=== PATIENT | female | born 1935 | race Hispanic/Latino ===

== ENCOUNTER 2017-02-25 08:50 | Outpatient (CLI) | payer MEDICARE ==
--- NOTE | 2017-02-25 11:00 | Cat Scan Report ---
CT CHEST WITHOUT CONTRAST: HISTORY: Cough. TECHNIQUE: Helical CT with sagittal and coronal reformatted images. FINDINGS: Mild cardiomegaly and mild central pulmonary venous congestion are identified. The lungs are generally clear. No evidence for mass, infiltrate, pleural effusion or pneumothorax. The thyroid gland, tracheobronchial tree, esophagus, mediastinal vessels and pericardium are unremarkable. Right mastectomy changes are evident. Moderate thoracic spondylosis. No evidence for fracture or suspicious bony lesion. Cholelithiasis in the visualized upper abdomen is noted. IMPRESSION: Mild cardiomegaly and pulmonary venous congestion. Right mastectomy changes. Cholelithiasis.
--- NOTE | 2017-03-01 10:49 | Mammography Report ---
Left mammogram: The patient is post right mastectomy. Routine views of the left breast compared to prior studies dating back to 2015. The breast pattern is diffusely fatty with no significant findings or interval changes compared to prior exams. CAD used. Impression: Stable, benign left breast pattern post right mastectomy. Recommendation: Annual mammogram followup. BI-RADS CATEGORY: 1 = Negative ACR BI-RADS MAMMOGRAPHIC CODES: 0 = Needs additional imaging evaluation; 1 = Negative; 2 = Benign; 3 = Probably benign; 4 = Suspicious; 5 = Malignant; 6 = Known biopsy-proven malignancy COMMENT: 1. Dense breast tissue, i.e., adenosis, fibrocystic changes, etc., may obscure an underlying neoplasm. 2. Approximately 10% of cancers are not detected with mammography. 3. A negative mammography report should not delay biopsy if a clinically suspicious mass is present.
== END 2017-02-25 08:51 | disposition home or self-care (01) ==
LOC: CT 08:50
PROVIDERS: ATTEND Specialist
DX: Z12.31 Encounter for screening mammogram for malignant neoplasm of breast (principal); I51.7 Cardiomegaly; K80.20 Calculus of gallbladder without cholecystitis without obstruction; I87.8 Other specified disorders of veins; R05 Cough; M47.894 Other spondylosis, thoracic region; Z90.11 Acquired absence of right breast and nipple
CPT/HCPCS: 71250; G0202

== ENCOUNTER 2017-09-22 11:58 | Outpatient (CLI) | payer MEDICARE ==
--- NOTE | 2017-09-22 14:33 | Cat Scan Report ---
CT CHEST WITHOUT CONTRAST: HISTORY: Persistent cough. COMPARISON: 02/25/17. TECHNIQUE: Helical CT in 1.25mm intervals without IV contrast. Sagittal and coronal reformatted images. FINDINGS: Mild cardiomegaly is stable. Pulmonary venous congestion has resolved since the previous exam. The lungs are clear. There is no evidence for pneumonia or parenchymal lung disease. Minor linear scarring in the right middle lobe is noted. The tracheobronchial tree is patent and contains physiologic calcifications. No evidence for mediastinal mass or adenopathy. The esophagus is unremarkable. The bony structures are intact. Stable right mastectomy changes. IMPRESSION: Cardiomegaly. Lungs clear. No significant change since 02/25/17. No clear explanation for persistent cough on noncontrast CT.
== END 2017-09-22 11:59 | disposition home or self-care (01) ==
LOC: CT 11:58
PROVIDERS: ATTEND Specialist
DX: I27.0 Primary pulmonary hypertension (principal); I07.1 Rheumatic tricuspid insufficiency; J98.4 Other disorders of lung; I70.0 Atherosclerosis of aorta; Z90.11 Acquired absence of right breast and nipple
CPT/HCPCS: 71250; 93306

== ENCOUNTER 2018-10-03 15:26 | Outpatient (CLI) | payer MEDICARE ==
[2018-10-03 15:45] LABS: Basophils # (Auto) 0.1 K/mm3 (0.0-0.1); Eosinophils # (Auto) 0.1 K/mm3 (0.0-0.4); Eosinophils % (Auto) 1.2 % (0.0-4.3); Hematocrit 42.2 % (30.3-42.9); Hemoglobin 13.9 gm/dl (10.1-14.3); Lymphocytes # (Auto) 1.8 K/mm3 (1.2-5.4); Lymphocytes % (Auto) 22.7 % (13.4-35.0); Mean Corpuscular HGB Conc 33 % (30-34); Mean Corpuscular Volume 95 fl (79-97); Monocytes # (Auto) 1.2 K/mm3 (0.0-0.8); Monocytes % (Auto) 14.5 % (0.0-7.3); Red Blood Count 4.43 M/mm3 (3.65-5.03); Red Cell Distribution Width 15.5 % (13.2-15.2)
[2018-10-03 16:07] LABS: Alanine Aminotransferase 49 units/L (7-56); Albumin 3.9 g/dL (3.9-5); BUN/Creatinine Ratio 38; Blood Urea Nitrogen 19 mg/dL (7-17); Calcium 9.6 mg/dL (8.4-10.2); Hemolysis Index 21
[2018-10-03 16:18] LABS: Erythrocyte Sedimentation Rate 2 mm/Hr (0-20)
[2018-10-03 16:31] LABS: Platelet Count 93 K/mm3 (140-440)
== END 2018-10-03 15:27 | disposition home or self-care (01) ==
LOC: LAB 15:26
PROVIDERS: ATTEND Specialist
DX: G43.711 Chronic migraine without aura, intractable, with status migrainosus (principal)
CPT/HCPCS: 36415; 80053; 85025; 85652

== ENCOUNTER 2018-11-13 10:05 | Inpatient (IN) | payer MEDICARE ==
[2018-11-13 10:38] LABS: Eosinophils # (Auto) 0.1 K/mm3 (0.0-0.4); Eosinophils % (Auto) 2.2 % (0.0-4.3); Hematocrit 41.5 % (30.3-42.9); Hemoglobin 13.7 gm/dl (10.1-14.3); Lymphocytes # (Auto) 1.2 K/mm3 (1.2-5.4); Lymphocytes % (Auto) 31.1 % (13.4-35.0); Mean Corpuscular HGB Conc 33 % (30-34); Mean Corpuscular Volume 95 fl (79-97); Monocytes # (Auto) 0.5 K/mm3 (0.0-0.8); Monocytes % (Auto) 12.7 % (0.0-7.3); Platelet Count 199 K/mm3 (140-440); Red Blood Count 4.37 M/mm3 (3.65-5.03); Red Cell Distribution Width 14.8 % (13.2-15.2)
[2018-11-13 11:03] LABS: Alanine Aminotransferase 71 units/L (7-56); Albumin 3.5 g/dL (3.9-5); BUN/Creatinine Ratio 26; Blood Urea Nitrogen 13 mg/dL (7-17); Calcium 9.1 mg/dL (8.4-10.2); Hemolysis Index 38
--- NOTE | 2018-11-13 11:26 | XRay Report ---
PROCEDURE: XR CHEST ROUTINE 2V TECHNIQUE: Chest, 2 views HISTORY: Chest Pain COMPARISON: None FINDINGS: There is borderline cardiomegaly. There is no congestion. There is some subsegmental atelectasis in t he mid right lung. The right hemidiaphragm is mildly elevated. There is some minimal right basilar atelectasis versus in filtrate. There is a small right pleural effusion. Left lung is clear. There is no pneumothorax. IMPRESSION: Small right pleural effusion. Adjacent right basilar atelectasis versus infiltrate This document is electronically signed by Natalia Jameson MD., Nov 13 2018 11:24:10 AM ET
[2018-11-13 12:16] LABS: Creatine Kinase MB 1.6 ng/mL (0.0-4.0)
[2018-11-13 12:22] LABS: INR 0.95 (0.87-1.13)
[2018-11-13 12:23] LABS: Partial Thromboplastin Time 25.1 Sec. (24.2-36.6)
[2018-11-13] MEDS ORDERED: KIONEX PO ONE (14:56)
--- NOTE | 2018-11-13 15:02 | Emergency Department Report ---
ED General Adult HPI - General Chief complaint: Chest Pain Stated complaint: CHEST PAIN Time Seen by Provider: 11/13/18 11:38 Source: patient Mode of arrival: Ambulatory Limitations: No Limitations - History of Present Illness Initial comments: Assessment 83-year-old female with complaints of right sided chest pain since last night. She states that she has a chronic cough. She is on home O2. She denies hemoptysis. She denies leg pain or swelling. States her chest right shoulder hurt and that this has been intimately present since last night. She denies wheezing or increased shortness of breath. She admits to some nausea. She didn't have any apparent chills and was unaware of fever. Patient has a history of COPD and right mastectomy. -: Gradual, hour(s) Location: chest Radiation: other (shoulder) Severity scale (0 -10): 8 Quality: aching Consistency: intermittent Improves with: none Worsens with: movement, other (deep inspiration) Associated Symptoms: denies other symptoms - Related Data Allergies Allergy/AdvReac Type Severity Reaction Status Date / Time cephalexin [From Keflex] Allergy Hives Verified 11/13/18 10:11 doxycycline Allergy Hives Verified 11/13/18 10:11 iodine Allergy Hives Verified 11/13/18 10:11 levofloxacin [From Levaquin] Allergy Hives Verified 11/13/18 10:11 piperacillin [From Zosyn] Allergy Hives Verified 11/13/18 10:11 tazobactam [From Zosyn] Allergy Hives Verified 11/13/18 10:11 ED Review of Systems ROS: Stated complaint: CHEST PAIN Other details as noted in HPI Constitutional: denies: chills, fever Eyes: denies: eye pain, eye discharge, vision change ENT: denies: ear pain, throat pain Respiratory: denies: cough, shortness of breath, wheezing Cardiovascular: chest pain. denies: palpitations Endocrine: no symptoms reported Gastrointestinal: denies: abdominal pain, nausea, diarrhea Genitourinary: denies: urgency, dysuria, discharge Musculoskeletal: denies: back pain, joint swelling, arthralgia Skin: denies: rash, lesions Neurological: denies: headache, weakness, paresthesias Psychiatric: denies: anxiety, depression Hematological/Lymphatic: denies: easy bleeding, easy bruising Other: Patient does seem to be minimizing her symptoms or very stoic. ED Past Medical Hx - Past Medical History Previous Medical History?: Yes Hx Congestive Heart Failure: Yes Hx of Cancer: Yes (breast cancer) - Surgical History Past Surgical History?: Yes Additional Surgical History: right mastectomy - Social History Smoking Status: Never Smoker Substance Use Type: None ED Physical Exam - General Limitations: No Limitations General appearance: alert, in no apparent distress - Head Head exam: Present: atraumatic, normocephalic - Eye Eye exam: Present: normal appearance. Absent: scleral icterus - ENT ENT exam: Present: mucous membranes moist - Neck Neck exam: Present: normal inspection - Respiratory Respiratory exam: Absent: normal lung sounds bilaterally (decreased breath sounds at the right base), respiratory distress - Cardiovascular Cardiovascular Exam: Present: regular rate, normal rhythm. Absent: systolic murmur, diastolic murmur, rubs, gallop - GI/Abdominal GI/Abdominal exam: Present: soft, normal bowel sounds. Absent: distended, tenderness, guarding, rebound - Extremities Exam Extremities exam: Present: normal inspection - Back Exam Back exam: Present: normal inspection - Neurological Exam Neurological exam: Present: alert, oriented X3, CN II-XII intact, normal gait. Absent: motor sensory deficit - Psychiatric Psychiatric exam: Present: normal affect, normal mood - Skin Skin exam: Present: warm, dry, intact, normal color. Absent: rash ED Course Vital Signs 11/13/18 10:11 Temperature 98.1 F Pulse Rate 84 Respiratory 18 Rate Blood Pressure 163/73 O2 Sat by Pulse 92 Oximetry - Reevaluation(s) Reevaluation #1: She was found to be hyperkalemic. She appears to perhaps have some chronic hype rcapnia judging from her PCO2. She declines nebulizer treatment. Her pulse oximetry is fine and she is able ambulate. I don't think she really requires a blood gas at this time. Further decision-making on that per hospitalist. She was given Kayexalate. She is allergic to contrast. She has a CT of her chest without contrast pending to help further elucidate the finding of a right pleural effusion. She was given azithromycin. She has multiple antibiotic allergies. 11/13/18 15:27 ED Medical Decision Making - Lab Data Result diagrams: 11/13/18 10:23 11/13/18 10:23 Laboratory Results - last 24 hr 11/13/18 11/13/18 11/13/18 10:23 10:23 10:23 WBC 4.0 L RBC 4.37 Hgb 13.7 Hct 41.5 MCV 95 MCH 31 MCHC 33 RDW 14.8 Plt Count 199 Lymph % (Auto) 31.1 Boyd % (Auto) 12.7 H Eos % (Auto) 2.2 Baso % (Auto) 1.0 Lymph # 1.2 Boyd # 0.5 Eos # 0.1 Baso # 0.0 Seg Neutrophils % 53.0 Seg Neutrophils # 2.1 PT INR APTT D-Dimer Sodium 142 Potassium 5.4 H Chloride 102.3 Carbon Dioxide 31 H Anion Gap 14 BUN 13 Creatinine 0.5 L Estimated GFR > 60 BUN/Creatinine Ratio 26 Glucose 103 H Calcium 9.1 Magnesium 2.10 Total Bilirubin 0.30 AST 41 H ALT 71 H Alkaline Phosphatase 74 Total Creatine Kinase 36 CK-MB (CK-2) 1.6 CK-MB (CK-2) Rel Index 4.4 H Troponin T < 0.010 NT-Pro-B Natriuret Pep 172.9 Total Protein 5.9 L Albumin 3.5 L Albumin/Globulin Ratio 1.5 11/13/18 11:54 WBC RBC Hgb Hct MCV MCH MCHC RDW Plt Count Lymph % (Auto) Boyd % (Auto) Eos % (Auto) Baso % (Auto) Lymph # Boyd # Eos # Baso # Seg Neutrophils % Seg Neutrophils # PT 13.3 INR 0.95 APTT 25.1 D-Dimer 217.38 Sodium Potassium Chloride Carbon Dioxide Anion Gap BUN Creatinine Estimated GFR BUN/Creatinine Ratio Glucose Calcium Magnesium Total Bilirubin AST ALT Alkaline Phosphatase Total Creatine Kinase CK-MB (CK-2) CK-MB (CK-2) Rel Index Troponin T NT-Pro-B Natriuret Pep Total Protein Albumin Albumin/Globulin Ratio - EKG Data -: EKG Interpreted by Me EKG shows normal: sinus rhythm - EKG Data Interpretation: other (intraventricular conduction) - Radiology Data Radiology results: image reviewed interpreted by me: Anterior and probably loculated pleural effusion on the right Critical care attestation.: If time is entered above; I have spent that time in minutes in the direct care of this critically ill patient, excluding procedure time. ED Disposition Clinical Impression: Recurrent right pleural effusion, Hyperkalemia, Elevated CO2 level Chest pain Qualifiers: Chest pain type: unspecified Qualified Code(s): R07.9 - Chest pain, unspecified COPD (chronic obstructive pulmonary disease) Qualifiers: COPD type: unspecified COPD Qualified Code(s): J44.9 - Chronic obstructive pulmonary disease, unspecified Breast cancer Qualifiers: Breast location: unspecified site of breast Estrogen receptor status: unspecified Patient sex: female Laterality: right Qualified Code(s): C50.911 - Malignant neoplasm of unspecified site of right female breast Disposition: OP ADMIT IP TO THIS HOSP Is pt being admited?: Yes Does the pt Need Aspirin: Yes Condition: Stable Instructions: Chest Pain (ED), Chronic Obstructive Pulmonary Disease (ED) Referrals: PRIMARY CARE, [Referring] - 3-5 Days Time of Disposition: 15:45
[2018-11-13] MEDS ORDERED: ZITHROMAX 500 MG in NACL 0.9% 250ML 250 ML IV ONE (15:30)
[2018-11-13] MEDS ORDERED: BABY ASPIRIN PO ONE (15:45)
--- NOTE | 2018-11-13 17:21 | Cat Scan Report ---
PROCEDURE: CT CHEST WO CON TECHNIQUE: Computerized axial tomography of the abdomen and pelvis was performed without contrast. C oronal and sagittal reconstruction was also performed. CT DOSE LENGTH PRODUCT: 399.73 mGycm HISTORY: r pleural effusion, cp, h/o breast CA PRIORS: CT chest 02/25/2017 FINDINGS There is a moderate low density right pleural effusion which is new. There is adjacent compressive at electasis in the right lower lobe. A small pericardial effusion is new and nonspecific. Linear fibros is in the right middle lobe and anterior right upper lobe are again noted. There is no evidence for parenchymal nodules, infiltrates, vascular congestion, or pneumothorax. The main pulmonary artery trunk is dilated measuring 4.4 cm in diameter, stable. The ascending aorta is also mildly ectatic measuring 4.4 x 4.0 cm in maximum diameter, stable. Cardiac size is normal. There is no evidence for bilateral hilar or axillary adenopathy. There is a new 1.3 cm lymph node in the left upper mediastinum beneath the proximal clavicle (axial image 7/105). There is also increased soft tissue density in the proximal right clavicle in the right paratracheal region of the upper med iastinum. However, without contrast, is difficult to differentiate from the adjacent vasculature. Und erlying lymph nodes in this region should be considered. Postsurgical changes in the right axilla are again noted. The esophagus is collapsed. The trachea is midline. Images through the lung bases include upper abdomen which show multiple calcified gallstones layering in the gallbladder. Right hemidiaphragm elevation is again noted. Bony structures show no focal abnormalities. No evidence for bony fracture is seen. Extensive osteoph ytic anterior bridging in the lower thoracic spine is again noted IMPRESSION 1. New moderate right pleural effusion with adjacent compressive atelectasis right lower lobe 2. Multiple newly enlarged lymph nodes in the upper mediastinum in the the proximal clavicles 3. New small pericardial effusion which is nonspecific 4. Stable dilatation of the main pulmonary artery trunk in the ascending aorta 5. Cholelithiasis again noted This document is electronically signed by Kell Brown MD., Nov 13 2018 05:19:14 PM ET
[2018-11-13] MEDS ORDERED: BABY ASPIRIN ONE (17:32)
[2018-11-13 18:28] LABS: BUN/Creatinine Ratio 24; Blood Urea Nitrogen 17 mg/dL (7-17); Calcium 9.7 mg/dL (8.4-10.2); Hemolysis Index 11
[2018-11-13] MEDS ORDERED: TYLENOL PO PRN ×2 (18:46→21:35)
--- NOTE | 2018-11-13 21:33 | History and Physical Report ---
History of Present Illness Date of examination: 11/13/18 Date of admission: 11/13/18 15:55 Chief complaint: Rt side chest pain and Rt shoulder pain SOB 1 day History of present illness: 83-year-old female with history of CHF and copd comes in for Rt sided chest pain and Rt shoulder pain associated with some sob.No fever or chills.Orthopnea present.No recent travel. Past Medical History Previous Medical History?: Yes Congestive Heart Failure: Yes Cancer: Yes (breast cancer) Hypothyroidism Surgical History Past Surgical History?: Yes Additional Surgical History: right mastectomy Social History Smoking Status: Never Smoker Substance Use Type: None Family History Htn Review of Systems ROS: Stated complaint: CHEST PAIN Other details as noted in HPI Constitutional: denies: chills, fever Eyes: denies: eye pain, eye discharge, vision change ENT: denies: ear pain, throat pain Respiratory: denies: cough, shortness of breath, wheezing Cardiovascular: chest pain. denies: palpitations Endocrine: no symptoms reported Gastrointestinal: denies: abdominal pain, nausea, diarrhea Genitourinary: denies: urgency, dysuria, discharge Musculoskeletal: denies: back pain, joint swelling, arthralgia Skin: denies: rash, lesions Neurological: denies: headache, weakness, paresthesias Psychiatric: denies: anxiety, depression Hematological/Lymphatic: denies: easy bleeding, easy bruising Other: Patient does seem to be minimizing her symptoms or very stoic. Medications and Allergies Allergies Allergy/AdvReac Type Severity Reaction Status Date / Time cephalexin [From Keflex] Allergy Hives Verified 11/13/18 10:11 doxycycline Allergy Hives Verified 11/13/18 10:11 iodine Allergy Hives Verified 11/13/18 10:11 levofloxacin [From Levaquin] Allergy Hives Verified 11/13/18 10:11 piperacillin [From Zosyn] Allergy Hives Verified 11/13/18 10:11 tazobactam [From Zosyn] Allergy Hives Verified 11/13/18 10:11 Home Medications Medication Instructions Recorded Confirmed Last Taken Type Levothyroxine [Synthroid] 100 mcg PO QAM 11/13/18 11/13/18 11/13/18 06:00 History Active Meds: Active Medications Acetaminophen (Tylenol) 650 mg PO Q6H PRN PRN Reason: Pain, Mild (1-3) Last Admin: 05/26/19 19:45 Dose: 650 mg Documented by: Exam - Constitutional Vitals: Temp Pulse Resp BP Pulse Ox 98.7 F 85 20 150/74 100 11/13/18 19:31 11/13/18 19:38 11/13/18 19:31 11/13/18 19:31 11/13/18 19:38 General appearance: Present: mild distress, well-nourished - EENT Eyes: Present: PERRL ENT: hearing intact, clear oral mucosa - Neck Neck: Present: supple, normal ROM - Respiratory Respiratory effort: normal Respiratory: bilateral: CTA - Cardiovascular Heart rate: 78 Rhythm: regular Heart Sounds: Present: S1 & S2. Absent: rub, click - Extremities Extremities: no ischemia, pulses intact, pulses symmetrical, No edema Peripheral Pulses: within normal limits - Abdominal General gastrointestinal: Present: soft, non-tender, non-distended, normal bowel sounds Female genitourinary: Present: normal - Rectal Rectal Exam: deferred - Integumentary Integumentary: Present: clear, warm, dry - Musculoskeletal Musculoskeletal: gait normal, strength equal bilaterally - Psychiatric Psychiatric: appropriate mood/affect, intact judgment & insight - Neurologic Neurologic: CNII-XII intact, moves all extremities - Allied Health Allied health notes reviewed: nursing, case management Results - Labs CBC & Chem 7: 11/13/18 10:23 11/13/18 21:42 Labs: Laboratory Last Values WBC 4.0 K/mm3 (4.5-11.0) L 11/13/18 10:23 RBC 4.37 M/mm3 (3.65-5.03) 11/13/18 10:23 Hgb 13.7 gm/dl (10.1-14.3) 11/13/18 10:23 Hct 41.5 % (30.3-42.9) 11/13/18 10:23 MCV 95 fl (79-97) 11/13/18 10:23 MCH 31 pg (28-32) 11/13/18 10:23 MCHC 33 % (30-34) 11/13/18 10:23 RDW 14.8 % (13.2-15.2) 11/13/18 10:23 Plt Count 199 K/mm3 (140-440) 11/13/18 10:23 Lymph % (Auto) 31.1 % (13.4-35.0) 11/13/18 10:23 [place] % (Auto) 12.7 % (0.0-7.3) H 11/13/18 10:23 Eos % (Auto) 2.2 % (0.0-4.3) 11/13/18 10:23 Baso % (Auto) 1.0 % (0.0-1.8) 11/13/18 10:23 Lymph # 1.2 K/mm3 (1.2-5.4) 11/13/18 10:23 [place] # 0.5 K/mm3 (0.0-0.8) 11/13/18 10:23 Eos # 0.1 K/mm3 (0.0-0.4) 11/13/18 10:23 Baso # 0.0 K/mm3 (0.0-0.1) 11/13/18 10:23 Seg Neutrophils % 53.0 % (40.0-70.0) 11/13/18 10:23 Seg Neutrophils # 2.1 K/mm3 (1.8-7.7) 11/13/18 10:23 PT 13.3 Sec. (12.2-14.9) 11/13/18 11:54 INR 0.95 (0.87-1.13) 11/13/18 11:54 APTT 25.1 Sec. (24.2-36.6) 11/13/18 11:54 217.38 ng/mlDDU (0-234) 11/13/18 11:54 Sodium 168 mmol/L (137-145) H* D 11/13/18 17:51 Potassium 5.2 mmol/L (3.6-5.0) H 11/13/18 17:51 Chloride 124.7 mmol/L (98-107) H 11/13/18 17:51 Carbon Dioxide 29 mmol/L (22-30) 11/13/18 17:51 21 mmol/L 11/13/18 17:51 BUN 17 mg/dL (7-17) 11/13/18 17:51 0.7 mg/dL (0.7-1.2) 11/13/18 17:51 Estimated GFR > 60 ml/min 11/13/18 17:51 24 % 11/13/18 17:51 Glucose 209 mg/dL (65-100) H 11/13/18 17:51 Calcium 9.7 mg/dL (8.4-10.2) 11/13/18 17:51 Magnesium 2.10 mg/dL (1.7-2.3) 11/13/18 10:23 0.30 mg/dL (0.1-1.2) 11/13/18 10:23 AST 41 units/L (5-40) H 11/13/18 10:23 ALT 71 units/L (7-56) H 11/13/18 10:23 74 units/L (35-129) 11/13/18 10:23 36 units/L (30-135) 11/13/18 10:23 CK-MB (CK-2) 1.6 ng/mL (0.0-4.0) 11/13/18 10:23 CK-MB (CK-2) Rel Index 4.4 (0-4) H 11/13/18 10:23 < 0.010 ng/mL (0.00-0.029) 11/13/18 10:23 NT-Pro-B Natriuret Pep 172.9 pg/mL (0-900) 11/13/18 10:23 5.9 g/dL (6.3-8.2) L 11/13/18 10:23 3.5 g/dL (3.9-5) L 11/13/18 10:23 1.5 % 11/13/18 10:23 Short CBC 11/13/18 Range/Units 10:23 WBC 4.0 L (4.5-11.0) K/mm3 Hgb 13.7 (10.1-14.3) gm/dl Hct 41.5 (30.3-42.9) % Plt Count 199 (140-440) K/mm3 BMP 11/13/18 11/13/18 11/13/18 10:23 17:51 21:42 Sodium 142 168 H* D 143 D Potassium 5.4 H 5.2 H 3.8 D Chloride 102.3 124.7 H 102.7 Carbon Dioxide 31 H 29 32 H BUN 13 17 11 Creatinine 0.5 L 0.7 0.6 L Glucose 103 H 209 H 105 H Calcium 9.1 9.7 8.6 Cardiac Enzymes 11/13/18 11/13/18 Range/Units 10:23 10:23 Total Creatine Kinase 36 (30-135) units/L CK-MB (CK-2) 1.6 (0.0-4.0) ng/mL Troponin T < 0.010 (0.00-0.029) ng/mL Liver Function 11/13/18 Range/Units 10:23 Total Bilirubin 0.30 (0.1-1.2) mg/dL AST 41 H (5-40) units/L ALT 71 H (7-56) units/L Alkaline Phosphatase 74 (35-129) units/L Albumin 3.5 L (3.9-5) g/dL - Imaging and Cardiology EKG: report reviewed Chest x-ray: report reviewed Imaging and Cardiology: CXR IMPRESSION: Small right pleural effusion. Adjacent right basilar atelectasis versus infiltrate CT Chest IMPRESSION 1. New moderate right pleural effusion with adjacent compressive atelectasis right lower lobe 2. Multiple newly enlarged lymph nodes in the upper mediastinum in the the proximal clavicles 3. New small pericardial effusion which is nonspecific 4. Stable dilatation of the main pulmonary artery trunk in the ascending aorta 5. Cholelithiasis again noted Assessment and Plan Advance Directives: Yes (Full code) VTE prophylaxis?: Chemical Plan of care discussed with patient/family: Yes - Patient Problems (1) Recurrent right pleural effusion Current Visit: Yes Status: Acute Plan to address problem: For Thoracentesis tomorrow Fluid for cell count and Chemistry. (2) Hyperkalemia Current Visit: Yes Status: Acute Plan to address problem: Treated with Kayexalate and Calcium Gluconate (3) Mediastinal lymphadenopathy Current Visit: Yes Status: Acute Plan to address problem: Will get pulmonary consult (4) Hypernatremia Current Visit: Yes Status: Acute Plan to address problem: High Sodium level on Second BMP is spurious IV 1/2 NS for 12 hours (5) Hypothyroidism Current Visit: Yes Status: Chronic Qualifiers: Hypothyroidism type: acquired Qualified Code(s): E03.9 - Hypothyroidism, unspecified Plan to address problem: Cont Synthyroid Check TSH (6) Transaminitis Current Visit: Yes Status: Acute Plan to address problem: Check Hepatatis profile (7) Malnutrition Current Visit: Yes Status: Acute Plan to address problem: Mild Dietitian consult (8) DVT prophylaxis Current Visit: Yes Status: Acute Plan to address problem: On Lovenox and GI prophylaxis
[2018-11-13] MEDS ORDERED: ZOFRAN IV PRN (21:35)
[2018-11-13] MEDS ORDERED: MORPHINE IV PRN (21:35)
[2018-11-13] MEDS ORDERED: SODIUM CHLORIDE FLUSH SYRINGE 10 ML IV PRN (21:35)
[2018-11-13] MEDS ORDERED: CALCIUM GLUCONATE 2,000 MG in NACL 0.9% 100 ML IV ONE (21:39)
[2018-11-13] MEDS ORDERED: KIONEX PO SCH (22:00)
[2018-11-13 22:26] LABS: BUN/Creatinine Ratio 18; Blood Urea Nitrogen 11 mg/dL (7-17); Calcium 8.6 mg/dL (8.4-10.2); Hemolysis Index 7
[2018-11-13] MEDS: SODIUM CHLORIDE FLUSH SYRINGE 10 ML IV SCH (23:27)
[2018-11-13] MEDS: NACL 0.45% 1000 ML 1,000 ML IV SCH (23:42)
[2018-11-14] MEDS ORDERED: DUONEB *Not for PRN Use IH (02:29)
[2018-11-14] MEDS ORDERED: PROVENTIL IH PRN (03:08)
[2018-11-14] MEDS: SYNTHROID PO SCH (05:23)
[2018-11-14 06:17] LABS: Alanine Aminotransferase 58 units/L (7-56); Albumin 3.7 g/dL (3.9-5); BUN/Creatinine Ratio 23; Blood Urea Nitrogen 9 mg/dL (7-17); Calcium 9.3 mg/dL (8.4-10.2); Hemolysis Index 7
[2018-11-14 06:20] LABS: Basophils % (Auto) 0.6 % (0.0-1.8); Eosinophils # (Auto) 0.1 K/mm3 (0.0-0.4); Eosinophils % (Auto) 1.7 % (0.0-4.3); Hematocrit 42.5 % (30.3-42.9); Hemoglobin 14.1 gm/dl (10.1-14.3); Hepatitis B Surface Antigen Non-Reactive (Negative); Hepatitis C Virus Antibody Non-Reactive (NonReactive); Lymphocytes # (Auto) 1.5 K/mm3 (1.2-5.4); Lymphocytes % (Auto) 24.1 % (13.4-35.0); Mean Corpuscular HGB Conc 33 % (30-34); Mean Corpuscular Volume 94 fl (79-97); Monocytes # (Auto) 0.6 K/mm3 (0.0-0.8); Platelet Count 183 K/mm3 (140-440); Red Blood Count 4.53 M/mm3 (3.65-5.03); Red Cell Distribution Width 14.6 % (13.2-15.2)
[2018-11-14] MEDS: PERCOCET 5/325 PO PRN (07:01)
--- NOTE | 2018-11-14 10:15 | Progress Note ---
Assessment and Plan Assessment and plan: Right sided chest pain due to right pleural effusion Pleural effusion. For thoracentesis in a.m. 11/15 Pulmonology consulted. She follows with Dr. Bower, Pulmonology Mediastinal lymphadenopathy Consulted pulmonology Chronic resp failure. on home oxygen Hyperkalemia resolved Hypernatremia resolved COPD. No SOB currently Hypothyroidism Resume Levothyroxine history of breast cancer s/p right mastectomy Full code status Discussed with patient and son at bedside. History Interval history: Right sided chest pain No fever Hospitalist Physical - Physical exam Narrative exam: Gen: Not in acute distress, lying in bed HEENT: Normocephalic, atraumatic Neck: supple, no JVD Heart: S1 and S2 reg, no murmurs, rubs or gallop, s/p right mastectomy Lungs: Clear, Decreased BS right base, no crackles, no wheeze Abd: soft, non tender, non distended, normal BS Ext: No edema, no clubbing, no cyanosis, Neuro: Awake,alert, oriented x 3, moves all ext, non focal Psych:Normal mood - Constitutional Vitals: Temp Pulse Resp BP Pulse Ox 98.2 F 82 16 143/69 95 11/14/18 07:54 11/14/18 07:54 11/14/18 09:17 11/14/18 07:54 11/14/18 08:27 General appearance: Present: well-nourished Results - Labs CBC & Chem 7: 11/14/18 05:37 11/14/18 05:37 Labs: Laboratory Last Values WBC 6.4 K/mm3 (4.5-11.0) 11/14/18 05:37 RBC 4.53 M/mm3 (3.65-5.03) 11/14/18 05:37 Hgb 14.1 gm/dl (10.1-14.3) 11/14/18 05:37 Hct 42.5 % (30.3-42.9) 11/14/18 05:37 MCV 94 fl (79-97) 11/14/18 05:37 MCH 31 pg (28-32) 11/14/18 05:37 MCHC 33 % (30-34) 11/14/18 05:37 RDW 14.6 % (13.2-15.2) 11/14/18 05:37 Plt Count 183 K/mm3 (140-440) 11/14/18 05:37 Lymph % (Auto) 24.1 % (13.4-35.0) 11/14/18 05:37 [place] % (Auto) 10.0 % (0.0-7.3) H 11/14/18 05:37 Eos % (Auto) 1.7 % (0.0-4.3) 11/14/18 05:37 Baso % (Auto) 0.6 % (0.0-1.8) 11/14/18 05:37 Lymph # 1.5 K/mm3 (1.2-5.4) 11/14/18 05:37 [place] # 0.6 K/mm3 (0.0-0.8) 11/14/18 05:37 Eos # 0.1 K/mm3 (0.0-0.4) 11/14/18 05:37 Baso # 0.0 K/mm3 (0.0-0.1) 11/14/18 05:37 Seg Neutrophils % 63.6 % (40.0-70.0) 11/14/18 05:37 Seg Neutrophils # 4.1 K/mm3 (1.8-7.7) 11/14/18 05:37 PT 13.3 Sec. (12.2-14.9) 11/13/18 11:54 INR 0.95 (0.87-1.13) 11/13/18 11:54 APTT 25.1 Sec. (24.2-36.6) 11/13/18 11:54 217.38 ng/mlDDU (0-234) 11/13/18 11:54 Sodium 144 mmol/L (137-145) 11/14/18 05:37 Potassium 4.2 mmol/L (3.6-5.0) 11/14/18 05:37 Chloride 104.1 mmol/L (98-107) 11/14/18 05:37 Carbon Dioxide 32 mmol/L (22-30) H 11/14/18 05:37 12 mmol/L 11/14/18 05:37 BUN 9 mg/dL (7-17) 11/14/18 05:37 0.4 mg/dL (0.7-1.2) L 11/14/18 05:37 Estimated GFR > 60 ml/min 11/14/18 05:37 23 % 11/14/18 05:37 Glucose 95 mg/dL (65-100) 11/14/18 05:37 5.4 % (4-6) 11/13/18 21:42 Calcium 9.3 mg/dL (8.4-10.2) 11/14/18 05:37 Magnesium 2.10 mg/dL (1.7-2.3) 11/13/18 10:23 0.30 mg/dL (0.1-1.2) 11/14/18 05:37 AST 25 units/L (5-40) 11/14/18 05:37 ALT 58 units/L (7-56) H 11/14/18 05:37 70 units/L (35-129) 11/14/18 05:37 36 units/L (30-135) 11/13/18 10:23 CK-MB (CK-2) 1.6 ng/mL (0.0-4.0) 11/13/18 10:23 CK-MB (CK-2) Rel Index 4.4 (0-4) H 11/13/18 10:23 < 0.010 ng/mL (0.00-0.029) 11/13/18 10:23 NT-Pro-B Natriuret Pep 172.9 pg/mL (0-900) 11/13/18 10:23 6.5 g/dL (6.3-8.2) 11/14/18 05:37 3.7 g/dL (3.9-5) L 11/14/18 05:37 1.3 % 11/14/18 05:37 TSH 0.441 mlU/mL (0.270-4.200) 11/14/18 05:37 Hepatitis A IgM Ab Non-reactive (NonReactive) 11/14/18 05:37 Hep Bs Antigen Non-reactive (Negative) 11/14/18 05:37 Hep B Core IgM Ab Non-reactive (NonReactive) 11/14/18 05:37 Non-reactive (NonReactive) 11/14/18 05:37 Active Medications - Current Medications Current Medications: Generic Name Dose Route Start Last Admin Trade Name Freq PRN Reason Stop Dose Admin Acetaminophen 650 mg 11/13/18 21:35 Tylenol PO Q4H PRN Pain MILD(1-3)/Fever >100.5/COELLO Albuterol 2.5 mg 11/14/18 03:08 Proventil IH Q3HRT PRN Wheezing Enoxaparin Sodium 30 mg 11/14/18 22:00 Lovenox SUB-Q QDAY@2200 KIMBER Sodium Chloride 1,000 mls @ 100 mls/hr 11/13/18 22:00 11/13/18 23:42 Nacl 0.45% 1000 Ml IV 100 mls/hr DIRECT KIMBER Administration Levothyroxine Sodium 100 mcg 11/14/18 06:00 11/14/18 05:23 Synthroid PO 100 mcg QAM@0600 KIMBER Administration Morphine Sulfate 2 mg 11/13/18 21:35 Morphine IV Q4H PRN Pain, Moderate (4-6) Ondansetron HCl 4 mg 11/13/18 21:35 Zofran IV Q8H PRN Nausea And Vomiting Oxycodone/Acetaminophen 1 tab 11/13/18 21:35 11/14/18 07:01 Percocet 5/325 PO 1 tab Q6H PRN Administration Pain, Moderate (4-6) Sodium Chloride 10 ml 11/13/18 22:00 11/13/18 23:27 Sodium Chloride Flush Syringe 10 Ml IV 10 ml BID KIMBER Administration Sodium Chloride 10 ml 11/13/18 21:35 Sodium Chloride Flush Syringe 10 Ml IV PRN PRN LINE FLUSH
--- NOTE | 2018-11-14 13:29 | Consultation ---
History of Present Illness Consult date: 11/14/18 Requesting physician: BARTOLOME FARFAN Reason for consult: pleural effusion History of present illness: 83 y/o female who presented to the ED with right sided chest pain. CXR revealed right sided pleural effusion. CT chest then ordered which revealed the same pleural effusion, dilated pulmonary arteries and some compressive atelectasis. admitted for work up of effusion. IMS ordered CT drainage of effusion but no other labs. Pulm consulted this afternoon. Past History Past Medical History: hypothyroidism Medications and Allergies Allergies Allergy/AdvReac Type Severity Reaction Status Date / Time cephalexin [From Keflex] Allergy Hives Verified 11/13/18 10:11 doxycycline Allergy Hives Verified 11/13/18 10:11 iodine Allergy Hives Verified 11/13/18 10:11 levofloxacin [From Levaquin] Allergy Hives Verified 11/13/18 10:11 piperacillin [From Zosyn] Allergy Hives Verified 11/13/18 10:11 tazobactam [From Zosyn] Allergy Hives Verified 11/13/18 10:11 Home Medications Medication Instructions Recorded Confirmed Last Taken Type Levothyroxine [Synthroid] 100 mcg PO QAM 11/13/18 11/13/18 11/13/18 06:00 History Aspirin [Aspirin BABY CHEW TAB] 81 mg PO QDAY 11/16/18 11/16/18 Unknown History Active Meds: Active Medications Acetaminophen (Tylenol) 650 mg PO Q4H PRN PRN Reason: Pain MILD(1-3)/Fever >100.5/COELLO Albuterol (Proventil) 2.5 mg IH Q3HRT PRN PRN Reason: Wheezing Enoxaparin Sodium (Lovenox) 30 mg SUB-Q QDAY@2200 [facility] Sodium Chloride (Nacl 0.45% 1000 Ml) 1,000 mls @ 100 mls/hr IV DIRECT [facility] Last Admin: 11/13/18 23:42 Dose: 100 mls/hr Documented by: Levothyroxine Sodium (Synthroid) 100 mcg PO QAM@0600 [facility] Last Admin: 11/14/18 05:23 Dose: 100 mcg Documented by: Morphine Sulfate (Morphine) 2 mg IV Q4H PRN PRN Reason: Pain, Moderate (4-6) Ondansetron HCl (Zofran) 4 mg IV Q8H PRN PRN Reason: Nausea And Vomiting Oxycodone/Acetaminophen (Percocet 5/325) 1 tab PO Q6H PRN PRN Reason: Pain, Moderate (4-6) Last Admin: 11/14/18 07:01 Dose: 1 tab Documented by: Sodium Chloride (Sodium Chloride Flush Syringe 10 Ml) 10 ml IV BID KIMBER Last Admin: 11/13/18 23:27 Dose: 10 ml Documented by: Sodium Chloride (Sodium Chloride Flush Syringe 10 Ml) 10 ml IV PRN PRN PRN Reason: LINE FLUSH Physical Examination Vital signs: Vital Signs Temp Pulse Resp BP Pulse Ox 98.1 F 84 18 163/73 92 11/13/18 10:11 11/13/18 10:11 11/13/18 10:11 11/13/18 10:11 11/13/18 10:11 General appearance: no acute distress, alert Eyes: non-icteric Ascultation: Right: diminished breath sounds (base), egophony (base) Percussion: Right: dull (base) Gastrointestinal: normoactive bowel sounds Results - Laboratory Findings CBC and BMP: 11/15/18 04:51 11/15/18 04:51 PT/INR, D-dimer PT 13.3 Sec. (12.2-14.9) 11/13/18 11:54 INR 0.95 (0.87-1.13) 11/13/18 11:54 217.38 ng/mlDDU (0-234) 11/13/18 11:54 Abnormal lab findings: Abnormal Labs 11/13/18 11/13/18 11/13/18 10:23 10:23 10:23 WBC 4.0 L [place] % (Auto) 12.7 H Sodium Potassium 5.4 H Chloride Carbon Dioxide 31 H Creatinine 0.5 L Glucose 103 H AST 41 H ALT 71 H CK-MB (CK-2) Rel Index 4.4 H Total Protein 5.9 L Albumin 3.5 L 11/13/18 11/13/18 11/14/18 17:51 21:42 05:37 WBC [place] % (Auto) 10.0 H Sodium 168 H* D Potassium 5.2 H Chloride 124.7 H Carbon Dioxide 32 H Creatinine 0.6 L Glucose 209 H 105 H AST ALT CK-MB (CK-2) Rel Index Total Protein Albumin 11/14/18 05:37 WBC [place] % (Auto) Sodium Potassium Chloride Carbon Dioxide 32 H Creatinine 0.4 L Glucose AST ALT 58 H CK-MB (CK-2) Rel Index Total Protein Albumin 3.7 L - Diagnostic Findings Chest x-ray: image reviewed CT scan - chest: image reviewed Assessment and Plan 83 y/o with pleural effusion of unknown origin 1. Agree with thoracentesis 2. Ordered LDH, Protein, Cell Count with Diff, Gram Stain and Culture, AFB and Fungal as well as glucose and Cytology 3. Ordered LFT's to obtain serum protein and serum LDH 4. Follow up procedure done and studies obtained. Protein and LDH on fluid are send outs at this institution.
[2018-11-14 14:31] LABS: Alanine Aminotransferase 58 units/L (7-56)
[2018-11-14 14:33] LABS: Albumin < 0.2 g/dL (3.9-5); Bilirubin,Direct < 0.2 mg/dL (0-0.2)
--- NOTE | 2018-11-14 14:57 | Ultrasound Report ---
ULTRASOUND THORACENTESIS History: Right pleural effusion Description of procedure: Informed consent was obtained. Sterile technique was utilized. 1% lidocaine for skin anesthesia. Using ultrasound guidance, a 5 [place] centesis needle was advanced into the right pleural space. There was spontaneous return of clear yellow fluid. 300 cc of fluid was aspirated. 120 cc of fluid was sent to the lab for analysis. No complications. Impression: Successful ultrasound-guided right thoracentesis.
--- NOTE | 2018-11-14 16:43 | XRay Report ---
PROCEDURE: XR CHEST 1V AP TECHNIQUE: Chest radiograph single view. HISTORY: rt pleural effusion, recent thoracentesis COMPARISONS: 11/13/2018 . FINDINGS: Heart: Prominent cardiac silhouette. Mediastinum/Vessels: Prominent central vessels. Lungs/Pleural space: No airspace infiltrate, effusion, or pneumothorax. Bony thorax: Bilateral glenohumeral joint osteoarthritis. Life support devices: None. IMPRESSION: No pleural effusion or pneumothorax is identified. This document is electronically signed by Augusta Alfonso MD., Nov 14 2018 04:41:40 PM ET
[2018-11-14] MEDS: SODIUM CHLORIDE FLUSH SYRINGE 10 ML IV SCH (17:19)
[2018-11-14 17:33] LABS: Total Cells Counted 100 /mm3
[2018-11-14] MEDS: LOVENOX SUB-Q SCH (21:57)
[2018-11-15] MEDS: PERCOCET 5/325 PO PRN ×2 (00:01→21:23)
[2018-11-15 05:31] LABS: Hematocrit 40.5 % (30.3-42.9); Hemoglobin 13.3 gm/dl (10.1-14.3); Mean Corpuscular HGB Conc 33 % (30-34); Mean Corpuscular Volume 94 fl (79-97); Platelet Count 170 K/mm3 (140-440); Red Blood Count 4.31 M/mm3 (3.65-5.03); Red Cell Distribution Width 14.6 % (13.2-15.2)
[2018-11-15 05:58] LABS: BUN/Creatinine Ratio 35; Blood Urea Nitrogen 14 mg/dL (7-17); Hemolysis Index 5
[2018-11-15] MEDS: SYNTHROID PO SCH (06:54)
--- NOTE | 2018-11-15 10:38 | Progress Note ---
Assessment and Plan Assessment and plan: 83-year-old female with history of CHF and copd comes in for Rt sided chest pain and Rt shoulder pain associated with some sob.No fever or chills. Orthopnea present. No recent travel. Right sided chest pain due to right pleural effusion now s/p thoracentesis awaiting analysis of fluid on differential for further management. Pleural effusion. For thoracentesis in a.m. 11/15 Pulmonology consulted. She follows with Dr. Bower, Pulmonology Mediastinal lymphadenopathy Consulted pulmonology Chronic resp failure. on home oxygen Hyperkalemia resolved Hypernatremia resolved COPD. No SOB currently Hypothyroidism Resume Levothyroxine history of breast cancer s/p right mastectomy Full code status Discussed with patient and son at bedside. anticipate discharge tomorrow if remains stable History Interval history: Patient still reports some right sided chest pain, but much improved following thoracentesis, now 07/31/ Hospitalist Physical - Physical exam Narrative exam: Gen: seen and examined, lying in bed HEENT: Normocephalic, atraumatic Neck: supple, no JVD Heart: S1 and S2 reg, no murmurs, rubs or gallop, s/p right mastectomy Lungs: Clear, good lung excursion, no crackles, no wheeze Abd: soft, non tender, non distended, normal BS Ext: No edema, no clubbing, no cyanosis, Neuro: Awake,alert, oriented x 3, moves all ext, non focal Psych:Normal mood - Constitutional Vitals: Temp Pulse Resp BP Pulse Ox 98.1 F 78 18 133/67 97 11/15/18 02:03 11/15/18 02:03 11/15/18 02:03 11/15/18 02:03 11/15/18 02:03 General appearance: Present: well-nourished Results - Labs CBC & Chem 7: 11/15/18 04:51 11/15/18 04:51 Labs: Laboratory Last Values WBC 5.1 K/mm3 (4.5-11.0) 11/15/18 04:51 RBC 4.31 M/mm3 (3.65-5.03) 11/15/18 04:51 Hgb 13.3 gm/dl (10.1-14.3) 11/15/18 04:51 Hct 40.5 % (30.3-42.9) 11/15/18 04:51 MCV 94 fl (79-97) 11/15/18 04:51 MCH 31 pg (28-32) 11/15/18 04:51 MCHC 33 % (30-34) 11/15/18 04:51 RDW 14.6 % (13.2-15.2) 11/15/18 04:51 Plt Count 170 K/mm3 (140-440) 11/15/18 04:51 Lymph % (Auto) 24.1 % (13.4-35.0) 11/14/18 05:37 [place] % (Auto) 10.0 % (0.0-7.3) H 11/14/18 05:37 Eos % (Auto) 1.7 % (0.0-4.3) 11/14/18 05:37 Baso % (Auto) 0.6 % (0.0-1.8) 11/14/18 05:37 Lymph # 1.5 K/mm3 (1.2-5.4) 11/14/18 05:37 [place] # 0.6 K/mm3 (0.0-0.8) 11/14/18 05:37 Eos # 0.1 K/mm3 (0.0-0.4) 11/14/18 05:37 Baso # 0.0 K/mm3 (0.0-0.1) 11/14/18 05:37 Seg Neutrophils % 63.6 % (40.0-70.0) 11/14/18 05:37 Seg Neutrophils # 4.1 K/mm3 (1.8-7.7) 11/14/18 05:37 PT 13.3 Sec. (12.2-14.9) 11/13/18 11:54 INR 0.95 (0.87-1.13) 11/13/18 11:54 APTT 25.1 Sec. (24.2-36.6) 11/13/18 11:54 217.38 ng/mlDDU (0-234) 11/13/18 11:54 Sodium 144 mmol/L (137-145) 11/15/18 04:51 Potassium 3.6 mmol/L (3.6-5.0) 11/15/18 04:51 Chloride 101.7 mmol/L (98-107) 11/15/18 04:51 Carbon Dioxide 31 mmol/L (22-30) H 11/15/18 04:51 15 mmol/L 11/15/18 04:51 BUN 14 mg/dL (7-17) 11/15/18 04:51 0.4 mg/dL (0.7-1.2) L 11/15/18 04:51 Estimated GFR > 60 ml/min 11/15/18 04:51 35 % 11/15/18 04:51 Glucose 100 mg/dL (65-100) 11/15/18 04:51 5.4 % (4-6) 11/13/18 21:42 Calcium 9.0 mg/dL (8.4-10.2) 11/15/18 04:51 Magnesium 2.10 mg/dL (1.7-2.3) 11/13/18 10:23 0.30 mg/dL (0.1-1.2) 11/14/18 05:37 0.30 mg/dL (0.1-1.2) 11/14/18 05:37 < 0.2 mg/dL (0-0.2) 11/14/18 05:37 0.1 mg/dL 11/14/18 05:37 AST 25 units/L (5-40) 11/14/18 05:37 AST 26 units/L (5-40) 11/14/18 05:37 ALT 58 units/L (7-56) H 11/14/18 05:37 ALT 58 units/L (7-56) H 11/14/18 05:37 67 units/L (35-129) 11/14/18 05:37 70 units/L (35-129) 11/14/18 05:37 223 units/L (91-180) H 11/14/18 05:37 36 units/L (30-135) 11/13/18 10:23 CK-MB (CK-2) 1.6 ng/mL (0.0-4.0) 11/13/18 10:23 CK-MB (CK-2) Rel Index 4.4 (0-4) H 11/13/18 10:23 < 0.010 ng/mL (0.00-0.029) 11/13/18 10:23 NT-Pro-B Natriuret Pep 172.9 pg/mL (0-900) 11/13/18 10:23 6.2 g/dL (6.3-8.2) L 11/14/18 05:37 6.5 g/dL (6.3-8.2) 11/14/18 05:37 3.7 g/dL (3.9-5) L 11/14/18 05:37 < 0.2 g/dL (3.9-5) L 11/14/18 05:37 0.0 % 11/14/18 05:37 1.3 % 11/14/18 05:37 TSH 0.441 mlU/mL (0.270-4.200) 11/14/18 05:37 Fluid Type Pleural 11/14/18 Unknown Fluid Color Yellow 11/14/18 Unknown Fluid Appearance Clear 11/14/18 Unknown Fluid WBC 383 /mm3 11/14/18 Unknown Fluid RBC 63 /mm3 11/14/18 Unknown Fluid Seg Neutrophils 2.0 % 11/14/18 Unknown Fluid Lymphocytes 93.0 % 11/14/18 Unknown Fluid Reactive Lymphs 0 % 11/14/18 Unknown Fluid Monocytes 5.0 % 11/14/18 Unknown Fluid Eosinophils 0 % 11/14/18 Unknown Fluid Basophils 0 % 11/14/18 Unknown Hepatitis A IgM Ab Non-reactive (NonReactive) 11/14/18 05:37 Hep Bs Antigen Non-reactive (Negative) 11/14/18 05:37 Hep B Core IgM Ab Non-reactive (NonReactive) 11/14/18 05:37 Non-reactive (NonReactive) 11/14/18 05:37 Active Medications - Current Medications Current Medications: Generic Name Dose Route Start Last Admin Trade Name Freq PRN Reason Stop Dose Admin Acetaminophen 650 mg 11/13/18 21:35 Tylenol PO Q4H PRN Pain MILD(1-3)/Fever >100.5/COELLO Albuterol 2.5 mg 11/14/18 03:08 Proventil IH Q3HRT PRN Wheezing Enoxaparin Sodium 30 mg 11/14/18 22:00 11/14/18 21:57 Lovenox SUB-Q 30 mg QDAY@2200 KIMBER Administration Sodium Chloride 1,000 mls @ 100 mls/hr 11/13/18 22:00 11/13/18 23:42 Nacl 0.45% 1000 Ml IV 100 mls/hr DIRECT KIMBER Administration Levothyroxine Sodium 100 mcg 11/14/18 06:00 11/15/18 06:54 Synthroid PO 100 mcg QAM@0600 KIMBER Administration Morphine Sulfate 2 mg 11/13/18 21:35 Morphine IV Q4H PRN Pain, Moderate (4-6) Ondansetron HCl 4 mg 11/13/18 21:35 Zofran IV Q8H PRN Nausea And Vomiting Oxycodone/Acetaminophen 1 tab 11/13/18 21:35 11/15/18 00:01 Percocet 5/325 PO 1 tab Q6H PRN Administration Pain, Moderate (4-6) Sodium Chloride 10 ml 11/13/18 22:00 11/14/18 17:19 Sodium Chloride Flush Syringe 10 Ml IV Not Given BID KIMBER Sodium Chloride 10 ml 11/13/18 21:35 Sodium Chloride Flush Syringe 10 Ml IV PRN PRN LINE FLUSH
--- NOTE | 2018-11-15 10:44 | Progress Note ---
Assessment and Plan Right pleural effusion. Status post thoracenteses Chilaiditi sign on chest x-ray. If symptomatic with pain,Chilaiditi syndrome a consideration, although typically with do not see this with pleural effusion Recommendations Thoracocentesis results Watch for fever Incentive spirometry Monitor GI tolerance, any signs of bowel distention or obstruction Discussed with patient and hospitalist in detail. All questions answered. Subjective Date of service: 11/15/18 Principal diagnosis: right pleural effusion Interval history: No events overnight. Breathing appear to be fine after thoracenteses. She reports right-sided chest pain radiating to the shoulder area on presentation. Currently gone. No cough, nausea, vomiting or fever at this point Objective Vital Signs - 12hr 11/14/18 11/15/18 23:00 02:03 Temperature 98.1 F Pulse Rate 78 Respiratory 18 Rate Respiratory 24 Rate [Chest] Blood Pressure 133/67 O2 Sat by Pulse 97 Oximetry Constitutional: no acute distress Eyes: non-icteric ENT: oropharynx moist Neck: supple Ascultation: Bilateral: clear, diminished breath sounds (right base) Percussion: Bilateral: not dull Cardiovascular: regular rate and rhythm Gastrointestinal: normoactive bowel sounds, soft, non-tender, non-distended Integumentary: normal Extremities: no cyanosis, no cyanosis, no cyanosis Neurologic: normal mental status, non-focal exam CBC and BMP: 11/15/18 04:51 11/15/18 04:51 ABG, PT/INR, D-dimer: PT/INR, D-dimer PT 13.3 Sec. (12.2-14.9) 11/13/18 11:54 INR 0.95 (0.87-1.13) 11/13/18 11:54 217.38 ng/mlDDU (0-234) 11/13/18 11:54 Abnormal lab findings: Abnormal Labs 11/13/18 11/13/18 11/13/18 10:23 10:23 10:23 WBC 4.0 L [place] % (Auto) 12.7 H Sodium Potassium 5.4 H Chloride Carbon Dioxide 31 H Creatinine 0.5 L Glucose 103 H AST 41 H ALT 71 H Lactate Dehydrogenase CK-MB (CK-2) Rel Index 4.4 H Total Protein 5.9 L Albumin 3.5 L 11/13/18 11/13/18 11/14/18 17:51 21:42 05:37 WBC [place] % (Auto) 10.0 H Sodium 168 H* D Potassium 5.2 H Chloride 124.7 H Carbon Dioxide 32 H Creatinine 0.6 L Glucose 209 H 105 H AST ALT Lactate Dehydrogenase CK-MB (CK-2) Rel Index Total Protein Albumin 11/14/18 11/14/18 11/14/18 05:37 05:37 05:37 WBC [place] % (Auto) Sodium Potassium Chloride Carbon Dioxide 32 H Creatinine 0.4 L Glucose AST ALT 58 H 58 H Lactate Dehydrogenase 223 H CK-MB (CK-2) Rel Index Total Protein 6.2 L Albumin 3.7 L < 0.2 L 11/15/18 04:51 WBC [place] % (Auto) Sodium Potassium Chloride Carbon Dioxide 31 H Creatinine 0.4 L Glucose AST ALT Lactate Dehydrogenase CK-MB (CK-2) Rel Index Total Protein Albumin
[2018-11-15] MEDS: SODIUM CHLORIDE FLUSH SYRINGE 10 ML IV SCH (11:39)
[2018-11-15] MEDS: NACL 0.45% 1000 ML 1,000 ML IV SCH (21:17)
[2018-11-15] MEDS: LOVENOX SUB-Q SCH (21:17)
[2018-11-16] MEDS: PERCOCET 5/325 PO PRN (03:26)
[2018-11-16] MEDS: SODIUM CHLORIDE FLUSH SYRINGE 10 ML IV SCH ×3 (03:27→09:52)
[2018-11-16] MEDS: SYNTHROID PO SCH (07:08)
[2018-11-16] MEDS: NACL 0.45% 1000 ML 1,000 ML IV SCH (09:43)
--- NOTE | 2018-11-16 10:11 | Progress Note ---
Assessment and Plan Right pleural effusion. Status post thoracenteses Chilaiditi sign on chest x-ray. If symptomatic with pain,Chilaiditi syndrome a consideration, although typically with do not see this with pleural effusion.Other etiologies need to be excluded,still no results from tap. Recommendations Follow up on thoracocentesis results. Could be done OPD if not immediately available,but need to be reviewed and followed by Pulmonary OPD. Can be send to [facility] for this ( [phone] form appointment ) Ambulate, check oxygen status Incentive spirometry Monitor GI tolerance, any signs of bowel distention or obstruction Discussed with patient in detail. All questions answered. Subjective Date of service: 11/16/18 Principal diagnosis: right pleural effusion Interval history: No events overnight. No respiratory complains.No chest or abdominal pain. Objective Vital Signs - 12hr 11/15/18 11/15/18 11/16/18 22:23 23:00 02:12 Temperature 98.4 F Pulse Rate 71 Respiratory 17 18 Rate Respiratory 17 Rate [Chest] Blood Pressure 132/62 O2 Sat by Pulse 98 Oximetry 11/16/18 11/16/18 11/16/18 03:26 04:26 07:21 Temperature 98.2 F Pulse Rate 71 Respiratory 17 17 20 Rate Respiratory Rate [Chest] Blood Pressure 131/62 O2 Sat by Pulse 96 Oximetry Constitutional: no acute distress, alert Eyes: non-icteric ENT: oropharynx moist Neck: supple Ascultation: Bilateral: clear Percussion: Bilateral: not dull Cardiovascular: regular rate and rhythm Gastrointestinal: normoactive bowel sounds, soft, non-tender, non-distended Integumentary: normal Extremities: no cyanosis, no cyanosis, no cyanosis Neurologic: normal mental status, non-focal exam CBC and BMP: 11/15/18 04:51 11/15/18 04:51 ABG, PT/INR, D-dimer: PT/INR, D-dimer PT 13.3 Sec. (12.2-14.9) 11/13/18 11:54 INR 0.95 (0.87-1.13) 11/13/18 11:54 217.38 ng/mlDDU (0-234) 11/13/18 11:54 Abnormal lab findings: Abnormal Labs 11/13/18 11/13/18 11/13/18 10:23 10:23 10:23 WBC 4.0 L [place] % (Auto) 12.7 H Sodium Potassium 5.4 H Chloride Carbon Dioxide 31 H Creatinine 0.5 L Glucose 103 H AST 41 H ALT 71 H Lactate Dehydrogenase CK-MB (CK-2) Rel Index 4.4 H Total Protein 5.9 L Albumin 3.5 L 11/13/18 11/13/18 11/14/18 17:51 21:42 05:37 WBC [place] % (Auto) 10.0 H Sodium 168 H* D Potassium 5.2 H Chloride 124.7 H Carbon Dioxide 32 H Creatinine 0.6 L Glucose 209 H 105 H AST ALT Lactate Dehydrogenase CK-MB (CK-2) Rel Index Total Protein Albumin 11/14/18 11/14/18 11/14/18 05:37 05:37 05:37 WBC [place] % (Auto) Sodium Potassium Chloride Carbon Dioxide 32 H Creatinine 0.4 L Glucose AST ALT 58 H 58 H Lactate Dehydrogenase 223 H CK-MB (CK-2) Rel Index Total Protein 6.2 L Albumin 3.7 L < 0.2 L 11/15/18 04:51 WBC [place] % (Auto) Sodium Potassium Chloride Carbon Dioxide 31 H Creatinine 0.4 L Glucose AST ALT Lactate Dehydrogenase CK-MB (CK-2) Rel Index Total Protein Albumin Chest x-ray: report reviewed, image reviewed
--- NOTE | 2018-11-16 10:34 | Discharge Summary ---
Providers - Providers Date of Admission: 11/13/18 15:55 Attending physician: HUGH CANADA MD 11/14/18 13:00 Consult to Physician [CONS] Routine Comment: MALACHI Consulting Provider: RANDELL DURAN Physician Instructions: CONSULT WAS CALLED TO Reason For Exam: pleural eff,mediastinal LN, patient of 11/15/18 09:03 Physical Therapy Evaluation and Treat [CONS] Routine Comment: Reason For Exam: Weakness Primary care physician: POONAM JOLLY MD Hospitalization Reason for admission: COPD Condition: Stable Hospital course: 83-year-old female with history of CHF and copd comes in for Rt sided chest pain and Rt shoulder pain associated with some sob.No fever or chills. Orthopnea present. No recent travel. The patient underwent right sided thoracentesis with improvement of they symptom. 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 Pulmonary recommended outpatient follow up for analysis of fluids with Phone Operator. Right sided chest pain secondary to pleurisy Pleural effusion. Mediastinal lymphadenopathy Chronic resp failure with hypoxia. Hyperkalemia Hypernatremia COPD. Hypothyroidism history of breast cancer s/p right mastectomy Disposition: [id number] HOME UNDER HOME [facility] Time spent for discharge: 35 mins Core Measure Documentation - Palliative Care Palliative Care/ Comfort Measures: Not Applicable - Core Measures Any of the following diagnoses?: none Exam - Physical Exam Narrative exam: Gen: seen and examined, lying in bed HEENT: Normocephalic, atraumatic Neck: supple, no JVD Heart: S1 and S2 reg, no murmurs, rubs or gallop, s/p right mastectomy Lungs: Clear, good lung excursion, no crackles, no wheeze Abd: soft, non tender, non distended, normal BS Ext: No edema, no clubbing, no cyanosis, Neuro: Awake,alert, oriented x 3, moves all ext, non focal Psych:Normal mood - Constitutional Vitals: Temp Pulse Resp BP Pulse Ox 98.2 F 71 20 131/62 96 11/16/18 07:21 11/16/18 07:21 11/16/18 07:21 11/16/18 07:21 11/16/18 07:21 Plan Activity: advance as tolerated, fall precautions Diet: low fat Special Instructions: record daily weights, record daily BP diary, home oxygen via (nasal cannula @ 2 liters per minute) Additional Instructions: follow with pulmonary for review of pleural fluids analysis.. Resume all home meds Follow up with: PRIMARY CAREMD [Referring] - 3-5 Days KAMALJIT GIBBONS MD [Staff Physician] - 7 Days
[2018-11-16 13:59] VITALS: BP 128/58
[2018-11-17 08:52] LABS: LDH,Body Fluid 189; Total Protein,Body Fluid < 3.0 (15.0-45.0)
== END 2018-11-16 14:55 | disposition home or self-care (01) | DRG 187 ==
LOC: ED 10:05 → 2B-ACE 15:55
PROVIDERS: ADMIT Internal Medicine; ATTEND Internal Medicine
PROC: 0W993ZZ Drainage of Right Pleural Cavity, Percutaneous Approach (ICD-10-PCS; principal; 2018-11-14)
DX: J90 Pleural effusion, not elsewhere classified (principal); E87.0 Hyperosmolality and hypernatremia; J96.11 Chronic respiratory failure with hypoxia; E44.1 Mild protein-calorie malnutrition; I50.9 Heart failure, unspecified; R07.89 Other chest pain; E87.5 Hyperkalemia; J44.9 Chronic obstructive pulmonary disease, unspecified; R74.0 Nonspecific elevation of levels of transaminase and lactic acid dehydrogenase [LDH]; R59.1 Generalized enlarged lymph nodes; E03.9 Hypothyroidism, unspecified; Z85.3 Personal history of malignant neoplasm of breast; Z90.11 Acquired absence of right breast and nipple; Z99.81 Dependence on supplemental oxygen; Z82.49 Family history of ischemic heart disease and other diseases of the circulatory system; Z88.1 Allergy status to other antibiotic agents; Z91.041 Radiographic dye allergy status; Z68.23 Body mass index [BMI] 23.0-23.9, adult
CPT/HCPCS: 32555; 36415; 71045; 71046; 71250; 80048; 80053; 80074; 80076; 82550; 82553; 82947; 83036; 83605; 83615; 83735; 83880; 84160; 84443; 84484; 85025; 85027; 85379; 85610; 85730; 87102; 87116; 88112; 88305; 88341; 88342; 89051; 93005; 93010; 93306; 94760; G0378; J0456; J0610; J1650; J7030; J7050

== ENCOUNTER 2018-12-01 11:40 | Outpatient (CLI) | payer MEDICARE ==
--- NOTE | 2018-12-02 10:29 | PET Report ---
PET/CT:12/01/18 11:40:00 CLINICAL: Breast cancer restaging. A new right pleural effusion. Recent thoracentesis revealed metastatic breast cancer cells in the pleural fluid. RADIOPHARMACEUTICAL: 14.899mCi F18-FDG. COMPARISON: CT Chest 11/13/18 TECHNIQUE- Following intravenous injection of F-18 FDG and an approximately 60 minute uptake period, CT and PET images from the mid skull to the upper thighs were acquired with the patient in the fasted state. No contrast was administered. The CT protocol used for this PET CT study is designed for attenuation correction and anatomic localization of PET abnormalities. This completions manager CT is not desired to produce and cannot replace, [id number]-art diagnostic CT scans with specific imaging protocols for different body parts and indications. Plasma glucose at the time of this test: 114g/dl. The standardized uptake values (SUV) are normalized to patient body weight and indicate the highest activity concentration (SUV max) in a given disease site. FINDINGS: Brain--Physiologic FDG uptake in the visualized regions of the brain. Neck--Physiologic FDG uptake in mucosal structures. No mass or lymphadenopathy. Chest--Physiologic FDG uptake in mediastinal blood pool and myocardium. Small pericardial effusion with no FDG uptake in the pericardium. Status post right mastectomy. Lungs--No abnormal uptake. However, diffuse reticular interstitial opacities of the right upper lobe are new compared to the 09/22/17 CT Chest. No pulmonary nodule or mass. Pleura/pericardium--No abnormal uptake. A moderate size right pleural effusion. Thoracic nodes--No abnormal uptake. Hepatobiliary--No abnormal uptake. Liver background SUV mean, as a reference for comparing FDG studies, is 3.6 . No liver mass. Spleen--No abnormal uptake. Pancreas--No abnormal uptake. Adrenal Glands--No abnormal uptake. Kidneys/Ureters/Bladder--No abnormal uptake. Abdominopelvic Nodes--No abnormal uptake. Bowel/Peritoneum/Mesentery--No abnormal uptake. Pelvic organs--No abnormal uptake. Bones/Soft Tissues--An FDG avid lytic lesion of the manubrium measures approximately 4 cm in transverse dimension within she the 5.5. Both anterior and posterior cortex of the manubrium are rotated. No other bone lesions are that side. IMPRESSION- 1. A new 4 cm FDG avid lytic lesion of the manubrium. 2. A moderate size right pleural effusion and small pericardial effusion but no FDG uptake in the pleura or pericardium. 3. Reticular interstitial opacities of the right upper lobe suggest possible lymphangitic pulmonary metastasis. 4. No evidence of hepatic or aliza metastasis.
== END 2018-12-01 11:41 | disposition home or self-care (01) ==
LOC: PET 11:40
PROVIDERS: ATTEND Internal Medicine Hematology & Oncology
DX: C50.211 Malignant neoplasm of upper-inner quadrant of right female breast (principal); J90 Pleural effusion, not elsewhere classified; I31.3 Pericardial effusion (noninflammatory); E03.9 Hypothyroidism, unspecified; J44.9 Chronic obstructive pulmonary disease, unspecified
CPT/HCPCS: 78815; 82962; A9552

== ENCOUNTER 2019-03-02 10:31 | Outpatient (CLI) | payer MEDICARE ==
--- NOTE | 2019-03-02 15:50 | PET Report ---
PET/CT HISTORY: C50.219. Restaging of right breast cancer TECHNIQUE: The patient's fasting blood glucose was 94. The patient weighed 125 lbs. The patient wa s injected with 14.3 mCi of FDG in the left antecubital fossa at 1125 hours and imaging was started a t 1222 hours. The patient was imaged from the skull base to the thighs. [facility] are [facility] using CT dose reduction for ALARA by means of automated exposure control. COMPARISON: 12/01/2018 FINDINGS: FDG findings: Distribution of the radiotracer is physiologic. There is decreased uptake in the next lytic sclerotic manubrial lesion which measures 3.1 as opposed to 5.5 on the previous examination. No new or additional areas of abnormal radiotracer uptake are identified. Mean liver SUV measures 3.1. Non-FDG findings: The imaged brain remains unremarkable. No cervical adenopathy or mass has develope d. Mild cardiomegaly and small layering right pleural effusion are unchanged. No pulmonary nodule or mas s has developed. Slightly prominent interstitial markings in the right upper lobe are unchanged since the previous exam. The abdominal and pelvic viscera remain unremarkable. No visceral mass or adenopathy has developed. C holelithiasis is again noted. The osseous structures are demineralized with degenerative change. The mixed lytic sclerotic manubria l lesion appears unchanged in size. No new bony lesion or fracture is identified. IMPRESSION: A positive response to therapy is demonstrated since 12/01/2018 exam. A solitary bony lesi on in the manubrium is again seen with decreased hypermetabolic activity as described above. No new a reas of disease are identified. Signer Name: Segundo Adams Jr, MD Signed: 03/02/2019 3:45 PM Workstation Name: [id number]
== END 2019-03-02 10:32 | disposition home or self-care (01) ==
LOC: PET 10:31
PROVIDERS: ATTEND Internal Medicine Hematology & Oncology
DX: C50.211 Malignant neoplasm of upper-inner quadrant of right female breast (principal); E03.9 Hypothyroidism, unspecified; J44.9 Chronic obstructive pulmonary disease, unspecified
CPT/HCPCS: 78815; 82962; A9552

== ENCOUNTER 2019-06-22 11:42 | Outpatient (CLI) | payer MEDICARE ==
--- NOTE | 2019-06-22 14:32 | PET Report ---
PET/CT HISTORY: C50.219. Restaging of right breast cancer TECHNIQUE: The patient's fasting blood glucose was 111. The patient weighed 127 lbs. The patient w as injected with 10.5 mCi of FDG in the left antecubital fossa at 1209 and imaging was started at 124 5. The patient was imaged from the skull base to the thighs. All CT scans at this location are perfo rmed using CT dose reduction for ALARA by means of automated exposure control. Images were reviewed o n a workstation. COMPARISON: 03/02/2019 FINDINGS: IMAGED BRAIN: [Physiologic FDG uptake] NECK: [Physiologic FDG uptake] CHEST WALL: [Physiologic FDG uptake]. Stable right mastectomy changes and right axillary lymph node dissection changes. MEDIASTINUM: [Physiologic FDG uptake]. Stable mild cardiomegaly. LUNGS: [Physiologic FDG uptake]. Stable small right pleural effusion. No suspicious nodule or mass. HEPATOBILIARY: [Physiologic FDG uptake]. Liver SUV measures 3.5 as opposed to 3.1 on the previous ex am. Cholelithiasis is again noted. PANCREAS: [Physiologic FDG uptake SPLEEN: [Physiologic FDG uptake] KIDNEYS/BLADDER: [Physiologic FDG uptake] ADRENAL GLANDS: [Physiologic FDG uptake] GI/MESENTERY: [Physiologic FDG uptake] PELVIC VISCERA: [Physiologic FDG uptake] LYMPH NODES: [Physiologic FDG uptake] OSSEOUS STRUCTURES: [Physiologic FDG uptake. ]Previously described uptake in the mixed lytic sclero tic manubrial lesion has resolved. Max SUV measures 2.3 on today's exam. No new areas of increased me tabolic activity is appreciated. ADDITIONAL FINDINGS: [None] IMPRESSION: A positive response to therapy is demonstrated since the previous exam. Mild hypermetabolic activity in the manubrium has resolved since the previous exam. Essentially negative PET/CT. Signer Name: Segundo Adams Jr, MD Signed: 06/22/2019 2:28 PM Workstation Name: [id number]
== END 2019-06-22 11:43 | disposition home or self-care (01) ==
LOC: PET 11:42
PROVIDERS: ATTEND Internal Medicine Hematology & Oncology
DX: E88.9 Metabolic disorder, unspecified (principal); C50.219 Malignant neoplasm of upper-inner quadrant of unspecified female breast; I51.7 Cardiomegaly; J90 Pleural effusion, not elsewhere classified; K80.20 Calculus of gallbladder without cholecystitis without obstruction
CPT/HCPCS: 78815; 82962; A9552

== ENCOUNTER 2019-10-12 07:23 | Outpatient (CLI) | payer MEDICARE ==
--- NOTE | 2019-10-12 14:35 | PET Report ---
PET-CT SCAN INDICATION / CLINICAL INFORMATION: C50.219. Breast cancer. STAGING: Re-staging TECHNIQUE: Tumor imaging, positron emission tomography (PET) with concurrently acquired computed tomography (CT) for attenuation correction and anatomical localization; Skull Base to Mid Thigh - DOSE: 14.66 mCi F-18 FDG was administered IV per protocol in the left elbow. - GLUCOSE: Patient's blood glucose at that time was (mg/dL): 108 - UPTAKE TIME: PET scan performed approximately 60 minutes after radiotracer administration. - CT SCAN DESCRIPTION: No oral or IV contrast. All CT scans at this location are performed using CT d ose reduction for ALARA by means of automated exposure control. COMPARISON: PET/CT from 06/22/2019. FINDINGS: HEAD / NECK: No abnormal radiotracer uptake in the neck. No significant CT abnormality. CHEST: No abnormal radiotracer uptake in the chest. The previously seen right pleural effusion is sli ghtly larger with associated atelectasis. No additional significant abnormality. ABDOMEN / PELVIS: No abnormal radiotracer uptake in the abdomen. No significant CT abnormality. LOWER EXTREMITIES: No abnormal radiotracer uptake in the visualized lower extremities. No significant CT abnormality. SKELETAL STRUCTURES: No hypermetabolic bone lesions. No aggressive appearing osseous lesion or other acute abnormality is seen. ADDITIONAL FINDINGS: No additional significant findings. IMPRESSION: No FDG avid neoplastic disease. Signer Name: Christian Abraham MD Signed: 10/12/2019 2:31 PM Workstation Name: [id number]
== END 2019-10-12 07:24 | disposition home or self-care (01) ==
LOC: PET 07:23
PROVIDERS: ATTEND Internal Medicine Hematology & Oncology
DX: C50.211 Malignant neoplasm of upper-inner quadrant of right female breast (principal); J98.11 Atelectasis; J90 Pleural effusion, not elsewhere classified
CPT/HCPCS: 78815; 82962; A9552

== ENCOUNTER 2020-02-08 08:06 | Outpatient (CLI) | payer MEDICARE ==
--- NOTE | 2020-02-08 13:50 | PET Report ---
. PET/CT HISTORY: C50.219/C50.212. Restaging of right breast cancer TECHNIQUE: The patient's fasting blood glucose was 99. The patient weighed 128 lbs. The patient wa s injected with 14.1 mCi of FDG in the left forearm at 0855 hours and imaging was started at [address] The patient was imaged from the skull base to the thighs. All CT scans at this location are perf ormed using CT dose reduction for ALARA by means of automated exposure control. Images were reviewed on a workstation. COMPARISON: 10/12/2019 FINDINGS: IMAGED BRAIN: [Physiologic FDG uptake. NECK: Physiologic FDG uptake. CHEST WALL: Physiologic FDG uptake. Stable right mastectomy changes and right axillary lymph node di ssection. MEDIASTINUM: Physiologic FDG uptake. LUNGS: Physiologic FDG uptake. Stable appearance of the small layering right pleural effusion and ri ght basilar atelectasis. No suspicious pulmonary lesion has developed. HEPATOBILIARY: Physiologic FDG uptake. Multiple small calcified gallstones are unchanged. PANCREAS: Physiologic FDG uptake. SPLEEN: Physiologic FDG uptake. KIDNEYS/BLADDER: Physiologic FDG uptake. ADRENAL GLANDS: Physiologic FDG uptake. GI/MESENTERY: Physiologic FDG uptake. PELVIC VISCERA: Physiologic FDG uptake. LYMPH NODES: Physiologic FDG uptake. No adenopathy is detected. OSSEOUS STRUCTURES: Physiologic FDG uptake. ADDITIONAL FINDINGS: None. IMPRESSION: Negative PET CT. Stable findings since 10/12/2019. No evidence for disease recurrence or metastasis. Signer Name: Segundo Adams Jr, MD Signed: 02/08/2020 1:45 PM Workstation Name: [id number]
== END 2020-02-08 08:07 | disposition home or self-care (01) ==
LOC: PET 08:06
PROVIDERS: ATTEND Internal Medicine Hematology & Oncology
DX: C50.212 Malignant neoplasm of upper-inner quadrant of left female breast (principal); C50.219 Malignant neoplasm of upper-inner quadrant of unspecified female breast; K80.80 Other cholelithiasis without obstruction; J98.11 Atelectasis; J90 Pleural effusion, not elsewhere classified
CPT/HCPCS: 78815; 82962; A9552

== ENCOUNTER 2020-06-20 08:02 | Outpatient (CLI) | payer MEDICARE ==
--- NOTE | 2020-06-20 11:56 | PET Report ---
PET/CT HISTORY: C50.219/C50.212. Restaging of right breast cancer TECHNIQUE: The patient's fasting blood glucose was 74. The patient weighed 130 lbs. The patient wa s injected with 14.4 mCi of FDG in the left antecubital fossa at 0922 hours and imaging was started a t 1038 hours. The patient was imaged from the skull base to the thighs. [facility] CT [facility] are performed using CT dose reduction for ALARA by means of automated exposure control. Images were reviewed on a workstation. COMPARISON: 02/08/2020 FINDINGS: IMAGED BRAIN: Physiologic FDG uptake. NECK: Physiologic FDG uptake. CHEST WALL: Physiologic FDG uptake. Stable right mastectomy changes and right axillary lymph node di ssection. MEDIASTINUM: Physiologic FDG uptake. LUNGS: Physiologic FDG uptake. Small to medium layering right pleural effusion is noted. No pleural nodularity is appreciated. HEPATOBILIARY: Physiologic FDG uptake. Cholelithiasis is again noted. PANCREAS: Physiologic FDG uptake. SPLEEN: Physiologic FDG uptake. KIDNEYS/BLADDER: Physiologic FDG uptake. ADRENAL GLANDS: Physiologic FDG uptake. GI/MESENTERY: Physiologic FDG uptake. PELVIC VISCERA: Physiologic FDG uptake. LYMPH NODES: Physiologic FDG uptake. OSSEOUS STRUCTURES: Physiologic FDG uptake. Stable appearance of the sclerotic manubrial lesion. No new bony lesions are detected. ADDITIONAL FINDINGS: None. IMPRESSION: Stable findings since 02/08/2020 exam. No evidence for disease recurrence or metastasis. Signer Name: Segundo Adams Jr, MD Signed: 06/20/2020 11:51 AM Workstation Name: [id number]
== END 2020-06-20 08:03 | disposition home or self-care (01) ==
LOC: PET 08:02
PROVIDERS: ATTEND Internal Medicine Hematology & Oncology
DX: C50.212 Malignant neoplasm of upper-inner quadrant of left female breast (principal)
CPT/HCPCS: 78815; 82962; A9552

== ENCOUNTER 2020-09-12 08:55 | Outpatient (CLI) | payer MEDICARE ==
--- NOTE | 2020-09-12 11:53 | PET Report ---
PET/CT HISTORY: C50.219 /C50.212. Restaging of right breast cancer TECHNIQUE: The patient's fasting blood glucose was 79. The patient weighed 130 lbs. The patient wa s injected with 14.4 mCi of FDG in the left antecubital fossa at 0922 hours and imaging was started a t 1038 hours. The patient was imaged from the skull base to the thighs. All CT scans at this [facility] are performed using CT dose reduction for ALARA by means of automated exposure control. Images were reviewed on a workstation. COMPARISON: 06/20/2020 FINDINGS: IMAGED BRAIN: [Physiologic FDG uptake. NECK: Physiologic FDG uptake. CHEST WALL: Physiologic FDG uptake. Stable right mastectomy changes and right axillary lymph node di ssection changes. MEDIASTINUM: Physiologic FDG uptake. LUNGS: Physiologic FDG uptake. Layering right pleural effusion and compressive atelectasis at the [facility] is unchanged. No pulmonary lesion or pleural lesion is appreciated. HEPATOBILIARY: Physiologic FDG uptake. Cholelithiasis is again noted. PANCREAS: Physiologic FDG uptake. SPLEEN: Physiologic FDG uptake. KIDNEYS/BLADDER: Physiologic FDG uptake. ADRENAL GLANDS: Physiologic FDG uptake. GI/MESENTERY: Physiologic FDG uptake. PELVIC VISCERA: Physiologic FDG uptake. LYMPH NODES: Physiologic FDG uptake. OSSEOUS STRUCTURES: Physiologic FDG uptake. Sclerotic manubrial lesion is unchanged. Max SUV is stab le measuring 2.3. No new bony lesions are appreciated. Osteopenia and degenerative changes throughout the spine are stable. ADDITIONAL FINDINGS: None. IMPRESSION: Stable findings since 06/20/2020 exam. No new areas of disease are identified. Stable hypometabolic manubrial lesion. Signer Name: Segundo Adams Jr, MD Signed: 09/12/2020 11:49 AM Workstation Name: [id number]
== END 2020-09-12 08:56 | disposition home or self-care (01) ==
LOC: PET 08:55
PROVIDERS: ATTEND Internal Medicine Hematology & Oncology
DX: C50.219 Malignant neoplasm of upper-inner quadrant of unspecified female breast (principal); C50.212 Malignant neoplasm of upper-inner quadrant of left female breast; J98.11 Atelectasis; J90 Pleural effusion, not elsewhere classified; R91.8 Other nonspecific abnormal finding of lung field; K80.20 Calculus of gallbladder without cholecystitis without obstruction; M85.88 Other specified disorders of bone density and structure, other site; M47.819 Spondylosis without myelopathy or radiculopathy, site unspecified
CPT/HCPCS: 78815; 82962; A9552

== ENCOUNTER 2020-12-12 09:04 | Outpatient (CLI) | payer MEDICARE ==
--- NOTE | 2020-12-12 11:57 | PET Report ---
. PET-CT SCAN INDICATION / CLINICAL INFORMATION: C50.219/ C50.212. STAGING: Re-staging TECHNIQUE: Tumor imaging, positron emission tomography (PET) with concurrently acquired computed tomography (CT) for attenuation correction and anatomical localization; Skull Base to Mid Thigh - DOSE: 12.58 mCi F-18 FDG was administered IV per protocol in the left hand - GLUCOSE: Patient's blood glucose at that time was (mg/dL): 90 - UPTAKE TIME: PET scan performed approximately 60 minutes after radiotracer administration. - CT SCAN DESCRIPTION: No oral or IV contrast. All CT scans at this location are performed using CT d ose reduction for ALARA by means of automated exposure control. COMPARISON: PET/CT from 09/12/2020 FINDINGS: HEAD / NECK: No abnormal radiotracer uptake in the neck. No significant CT abnormality. CHEST: No abnormal radiotracer uptake in the chest. Chronic right pleural effusion is unchanged. Prio r right mastectomy without abnormal FDG uptake. ABDOMEN / PELVIS: No abnormal radiotracer uptake in the abdomen. Cholelithiasis. LOWER EXTREMITIES: No abnormal radiotracer uptake in the visualized lower extremities. No significant CT abnormality. SKELETAL STRUCTURES: No hypermetabolic bone lesions. Stable sclerotic lesion involving the sternal ma nubrium. There is decreased uptake. The lesion is no longer hypermetabolic (SUV max measures 1.9; pre viously measured 2.3). ADDITIONAL FINDINGS: No additional significant findings. IMPRESSION: 1. Negative PET. No FDG avid neoplastic disease. 2. Decreased uptake in the now nonhypermetabolic sclerotic lesion of the manubrium. Signer Name: Andrew Fontana MD Signed: 12/12/2020 11:53 AM Workstation Name: [id number]
== END 2020-12-12 09:05 | disposition home or self-care (01) ==
LOC: PET 09:04
PROVIDERS: ATTEND Internal Medicine Hematology & Oncology
DX: C50.219 Malignant neoplasm of upper-inner quadrant of unspecified female breast (principal); C50.212 Malignant neoplasm of upper-inner quadrant of left female breast; J90 Pleural effusion, not elsewhere classified; K80.20 Calculus of gallbladder without cholecystitis without obstruction
CPT/HCPCS: 78815; 82962; A9552

== ENCOUNTER 2021-03-27 08:59 | Outpatient (CLI) | payer MEDICARE ==
--- NOTE | 2021-03-27 14:38 | PET Report ---
. PET-CT SCAN INDICATION / CLINICAL INFORMATION: C50.219. STAGING: Re-staging TECHNIQUE: Tumor imaging, positron emission tomography (PET) with concurrently acquired computed tomography (CT) for attenuation correction and anatomical localization; Skull Base to Mid Thigh - DOSE: 13.694 mCi F-18 FDG was administered IV per protocol in the left forearm - GLUCOSE: Patient's blood glucose at that time was (mg/dL): 77 - UPTAKE TIME: PET scan performed approximately 60 minutes after radiotracer administration. - CT SCAN DESCRIPTION: No oral or IV contrast. All CT scans at this location are performed using CT d ose reduction for ALARA by means of automated exposure control. COMPARISON: PET/CT from 12/12/2020. FINDINGS: HEAD / NECK: No abnormal radiotracer uptake in the neck. CHEST: Mild increased uptake associated with stable appearing nonenlarged lymph nodes just anterior t o the sternal manubrium. This now measures 3.3 in max SUV; previously measured 1.4. There is also mil d increased uptake associated with postsurgical changes of the right chest wall, measuring 3.9 in max imum SUV. No corresponding CT abnormality. No additional radiotracer uptake. Chronic right pleural ef fusion and airspace consolidation/scarring are unchanged. Prior right mastectomy without abnormal FDG uptake. ABDOMEN / PELVIS: No abnormal radiotracer uptake in the abdomen. Cholelithiasis. LOWER EXTREMITIES: No abnormal radiotracer uptake in the visualized lower extremities. SKELETAL STRUCTURES: No hypermetabolic bone lesions. Stable sclerotic lesion involving the sternal ma nubrium. Minimal increase uptake, now measuring 2.5; previously measured 1.9. ADDITIONAL FINDINGS: No additional significant findings. IMPRESSION: 1. Mild increase uptake of the sclerotic metastatic lesion within the sternal manubrium and adjacent nonenlarged lymph node, concerning for progression in disease. 2. Increased uptake associated with postsurgical changes of the right chest wall without correspondin g CT abnormality. Findings may be related to sequela of prior therapy. 3. No other sites of FDG avid neoplastic disease. 4. Other stable chronic CT findings, as above. Signer Name: Andrew Fontana MD Signed: 03/27/2021 2:34 PM Workstation Name: [id number]
== END 2021-03-27 09:00 | disposition home or self-care (01) ==
LOC: PET 08:59
PROVIDERS: ATTEND Internal Medicine Hematology & Oncology
DX: C50.219 Malignant neoplasm of upper-inner quadrant of unspecified female breast (principal); C44.310 Basal cell carcinoma of skin of unspecified parts of face; C79.51 Secondary malignant neoplasm of bone; C50.212 Malignant neoplasm of upper-inner quadrant of left female breast; J38.00 Paralysis of vocal cords and larynx, unspecified; G50.0 Trigeminal neuralgia; J06.9 Acute upper respiratory infection, unspecified; D70.9 Neutropenia, unspecified; M89.8X9 Other specified disorders of bone, unspecified site; J90 Pleural effusion, not elsewhere classified; J30.89 Other allergic rhinitis; R03.0 Elevated blood-pressure reading, without diagnosis of hypertension
CPT/HCPCS: 78815; 82962; A9552

== ENCOUNTER 2021-08-07 08:50 | Outpatient (CLI) | payer MEDICARE ==
--- NOTE | 2021-08-07 13:33 | PET Report ---
. PET/CT HISTORY: C50.212. Restaging of right breast cancer TECHNIQUE: The patient's fasting blood glucose was 83. The patient weighed 170 lbs. The patient wa s injected with 15.5 mCi of FDG in the left hand at 0931 hours and imaging was started at 1015 hours. The patient was imaged from the skull base to the thighs. All CT scans at this location are perform ed using CT dose reduction for ALARA by means of automated exposure control. Images were reviewed on a workstation. COMPARISON: 03/27/2021 FINDINGS: IMAGED BRAIN: Physiologic FDG uptake. NECK: Physiologic FDG uptake. CHEST WALL: Physiologic FDG uptake. Stable right mastectomy changes and right axillary lymph node di ssection. No obvious recurrent breast mass. MEDIASTINUM: Physiologic FDG uptake. LUNGS: There is slight increased uptake at the right lung base with max SUV increasing from 3.1 to [address] images demonstrate extensive pleural-parenchymal disease and small right pleural effusion which is unchanged. This may be related to radiation changes. No discrete nodule or mass is detected. . HEPATOBILIARY: Physiologic FDG uptake. PANCREAS: Physiologic FDG uptake. SPLEEN: Physiologic FDG uptake. KIDNEYS/BLADDER: Physiologic FDG uptake. ADRENAL GLANDS: Physiologic FDG uptake. GI/MESENTERY: Physiologic FDG uptake. PELVIC VISCERA: Physiologic FDG uptake. LYMPH NODES: Physiologic FDG uptake. OSSEOUS STRUCTURES: Sclerotic bony lesion in the manubrium appears stable. Max SUV within this lesio n has increased from 2.5 to 3.5. No new bony lesions are detected. ADDITIONAL FINDINGS: None. IMPRESSION: Minimal progression of disease is suggested. Manubrial lesion demonstrates slight increased uptake s mary the previous exam as described above. Previously described small nodules or lymph nodes anterior to the manubrium are hypometabolic on today's exam. There is mild increased uptake in the right pleura as described without evidence of a discrete mass. This may be related to radiation changes or inflammation. No additional areas of abnormal uptake are detected. Signer Name: Segundo Adams Jr, MD Signed: 08/07/2021 1:29 PM Workstation Name: [id number]
== END 2021-08-07 08:51 | disposition home or self-care (01) ==
LOC: PET 08:50
PROVIDERS: ATTEND Internal Medicine Hematology & Oncology
DX: C50.212 Malignant neoplasm of upper-inner quadrant of left female breast (principal); C50.219 Malignant neoplasm of upper-inner quadrant of unspecified female breast; C79.51 Secondary malignant neoplasm of bone
CPT/HCPCS: 78815; 82962; A9552

== ENCOUNTER 2021-12-11 07:26 | Outpatient (CLI) | payer MEDICARE ==
--- NOTE | 2021-12-11 10:41 | PET Report ---
PET-CT SCAN INDICATION / CLINICAL INFORMATION: C50.212. Breast cancer. STAGING: Re-staging TECHNIQUE: Tumor imaging, positron emission tomography (PET) with concurrently acquired computed tomography (CT) for attenuation correction and anatomical localization; Skull Base to Mid Thigh - DOSE: 15.9 mCi F-18 FDG was administered IV per protocol in the left hand - GLUCOSE: Patient's blood glucose at that time was (mg/dL): 103 - UPTAKE TIME: PET scan performed approximately 60 minutes after radiotracer administration. - CT SCAN DESCRIPTION: No oral or IV contrast. All CT scans at this location are performed using CT d ose reduction for ALARA by means of automated exposure control. COMPARISON: PET CT performed on 08/07/2021. FINDINGS: HEAD / NECK: No abnormal radiotracer uptake in the neck. No significant CT abnormality. CHEST: There is a similar small right pleural effusion with associated consolidation with mildly incr eased radiotracer uptake with a maximum SUV of 3.6, previously 5.4. By comparison, background mediast inal SUV measures 4.3. No other sites of abnormally increased radiotracer uptake. No other significan t interval changes. ABDOMEN / PELVIS: There is a similar questionable left periaortic node on image 121 measuring 1.4 cm in short axis dimension with increased radiotracer uptake with maximum SUV of 6.4, previously 4.0. No other sites of abnormally increased uptake. No new significant CT abnormality. LOWER EXTREMITIES: No abnormal radiotracer uptake in the visualized lower extremities. No significant CT abnormality. SKELETAL STRUCTURES: A sclerotic lesion persists in the manubrium without significant change in CT si ze/appearance with a maximum SUV of 4.4, previously 3.5. No other hypermetabolic bone lesions. No oth er significant interval changes. ADDITIONAL FINDINGS: No additional significant findings. IMPRESSION: 1. Suspected hypermetabolic left periaortic node as above with increased radiotracer uptake compared to the last PET/CT. 2. Slightly increased radiotracer uptake within the manubrial lesion without significant change in CT size/appearance. 3. Improvement of previously seen uptake along the right lower lobe, possibly representing radiation changes or other inflammatory changes. 4. No other sites of FDG avid neoplastic disease. Signer Name: Christian Abraham MD Signed: 12/11/2021 10:37 AM Workstation Name: [id number]
== END 2021-12-11 07:27 | disposition home or self-care (01) ==
LOC: PET 07:26
PROVIDERS: ATTEND Internal Medicine Hematology & Oncology
DX: C50.912 Malignant neoplasm of unspecified site of left female breast (principal); C50.212 Malignant neoplasm of upper-inner quadrant of left female breast; J90 Pleural effusion, not elsewhere classified
CPT/HCPCS: 78815; 82962; A9552

== ENCOUNTER 2022-03-19 09:03 | Outpatient (CLI) | payer MEDICARE ==
--- NOTE | 2022-03-19 12:51 | PET Report ---
PET/CT HISTORY: C50.219. Restaging of right breast cancer TECHNIQUE: The patient's fasting blood glucose was 85. The patient weighed 180 lbs. The patient wa s injected with 10.5 mCi of FDG in the left hand at 0943 hours and imaging was started at 1046 hours. The patient was imaged from the skull base to the thighs. All CT scans at this location are perform ed using CT dose reduction for ALARA by means of automated exposure control. Images were reviewed on a workstation. COMPARISON: 12/11/2021 FINDINGS: IMAGED BRAIN: Physiologic FDG uptake. NECK: Physiologic FDG uptake. CHEST WALL: Physiologic FDG uptake. MEDIASTINUM: Physiologic FDG uptake. LUNGS: Physiologic FDG uptake. Stable small right pleural effusion and assumed radiation changes in the right lower lung. HEPATOBILIARY: Physiologic FDG uptake. Mean liver SUV measures 4.0. Cholelithiasis is again noted. PANCREAS: Physiologic FDG uptake. SPLEEN: Physiologic FDG uptake. KIDNEYS/BLADDER: Physiologic FDG uptake. ADRENAL GLANDS: Physiologic FDG uptake. GI/MESENTERY: Physiologic FDG uptake. PELVIC VISCERA: Physiologic FDG uptake. LYMPH NODES: Physiologic FDG uptake. Previously described left periaortic lymph node is no longer se en and resolved. No new aliza uptake. OSSEOUS STRUCTURES: Max SUV in the sclerotic manubrial lesion has decreased slightly from 4.4 to 4.3 . No new bony uptake is detected.. ADDITIONAL FINDINGS: None. IMPRESSION: Mild positive response to therapy is demonstrated since 12/11/2021. Sclerotic manubrial lesion demons trates minimal decreased activity with max SUV decreasing from 4.4 to 4.3. Previously described small left periaortic lymph node in the upper retroperitoneum is not identified on today's exam. Stable ri ght pleural effusion and probable radiation changes in the right lung. No new areas of disease are ap preciated. Signer Name: Segundo Adams Jr, MD Signed: 03/19/2022 12:47 PM Workstation Name: [id number]
== END 2022-03-19 09:04 | disposition home or self-care (01) ==
LOC: PET 09:03
PROVIDERS: ATTEND Internal Medicine Hematology & Oncology
DX: C50.219 Malignant neoplasm of upper-inner quadrant of unspecified female breast (principal); C50.212 Malignant neoplasm of upper-inner quadrant of left female breast; J90 Pleural effusion, not elsewhere classified
CPT/HCPCS: 78815; 82962; A9552